=== PATIENT | female | born 1980 | race Caucasian/White ===

== ENCOUNTER → 2023-12-09 12:59 | Outpatient (REF) | payer BC, SELFPAY | LOC: HWRAD 12:59 | PROVIDERS: ATTENDING PHYSICIAN Obstetrics & Gynecology; FAMILY PHYSICIAN Family Medicine | DX: R31.0 Gross hematuria (principal) | CPT/HCPCS: 74178; Q9967 ==

== ENCOUNTER 2024-01-13 06:34 | Day surgery (SDC) | payer BC, SELFPAY ==
[2024-01-13] VITALS (8 sets, daily range): BP systolic 106–142; BP diastolic 66–101; BMI 32.7
[2024-01-13] MEDS: NORMOSOL-R 1000 IV (09:14)
[2024-01-13] MEDS: Pyridium 200 MG PO (12:08)
[2024-01-17 22:47] LABS: Stone Analysis Mass 23 mg
== END 2024-01-13 13:05 | disposition home or self-care (01) ==
LOC: SDS 06:34
PROVIDERS: ATTENDING PHYSICIAN Specialist
DX: N20.2 Calculus of kidney with calculus of ureter (principal)
CPT/HCPCS: 52352; 74018; 76000; 82365; C1894